=== PATIENT | female | born 1990 | race Asian ===

== ENCOUNTER 2018-12-27 11:14 | Day surgery (SDC) | payer SELFPAY ==
[2018-12-26 16:21] VITALS: BMI 23.2
[2018-12-27] MEDS ORDERED: EPINEPHrine/PF 1 MG/1 ML (1:1,000) AMPULE ONE ×2 (12:55→13:06)
[2018-12-27] MEDS ORDERED: LIDOCAINE HCL 1%, 10 MG/ML (20ML VIAL) ONE (12:56)
[2018-12-27] MEDS ORDERED: SODIUM BICARBONATE 8.4% - 50 ML ONE ×4 (12:57→13:10)
[2018-12-27] MEDS ORDERED: ROCURONIUM BROMIDE 50 MG/5 ML VIAL ONE (13:06)
[2018-12-27] MEDS ORDERED: MIDAZOLAM HCL 2 MG/2 ML SINGLE DOSE VIAL ONE (13:06)
[2018-12-27] MEDS ORDERED: PROPOFOL 20 ML ONE ×2 (13:06→15:39)
[2018-12-27] MEDS ORDERED: oxyCODONE HCL 5 MG TABLET PO PRN (13:27)
[2018-12-27] MEDS ORDERED: PROMETHAZINE HCL 25 MG/1 ML VIAL IVPB PRN (13:27)
[2018-12-27] MEDS ORDERED: ONDANSETRON 4 MG/2 ML VIAL IVPUSH PRN ×2 (13:27→16:54)
[2018-12-27] MEDS ORDERED: LACTATED RINGERS SOLUTION 1,000 ML IV SCH ×2 (13:30→17:00)
[2018-12-27] MEDS ORDERED: LIDOCAINE HCL/PF 2% SDV 5ML VIAL ONE (13:43)
[2018-12-27] MEDS ORDERED: SODIUM CHLORIDE 0.9% P/F 10 ML VIAL IJ ONE (13:43)
[2018-12-27] MEDS ORDERED: ceFAZolin SODIUM 1 GM VIAL ONE (13:43)
[2018-12-27] MEDS ORDERED: ceFAZolin SODIUM 1 GM VIAL IVPB ONE (13:44)
[2018-12-27] MEDS ORDERED: LIDOCAINE 1%-EPI 1:100,000 30 ML MDV IJ ONE (13:49)
[2018-12-27] MEDS ORDERED: DEXAMETHASONE SOD PHOSPHATE 4 MG/1 ML VIAL ONE (13:57)
[2018-12-27] MEDS ORDERED: LIDOCAINE 1%/EPI 1:100000 (20 ML MULTI DOSE VIAL) IJ ONE ×2 (14:00→16:02)
[2018-12-27] MEDS ORDERED: DESFLURANE GAS 240 ML BOTTLE IH ONE (15:13)
[2018-12-27] MEDS ORDERED: NEOSTIGMINE METHYLSULFATE 0.5 MG/ML - 10 ML MDV ONE (16:22)
[2018-12-27] MEDS ORDERED: GLYCOPYRROLATE 0.2 MG/1 ML VIAL ONE (16:22)
[2018-12-27] MEDS ORDERED: ACETAMINOPHEN 325 MG TABLET (FP) PO PRN (16:54)
[2018-12-27] MEDS ORDERED: MEPERIDINE HCL 25 MG/ML VIAL IVPUSH ONE (17:45)
[2018-12-27 18:30] VITALS: TEMP 98.2
[2018-12-27 20:43] VITALS: BP 127/60; PULSE 105
== END 2018-12-27 20:15 | disposition home or self-care (01) ==
LOC: JASU-SURG 11:14
PROVIDERS: ATTEND Plastic Surgery
CPT/HCPCS: 84703; 94760